=== PATIENT | female | born 1955 | race Caucasian/White ===

== ENCOUNTER → 2017-06-24 | Day surgery (SDC) | payer MEDICARE, OTHER ==
[~2017-06-24] MED LIST: ALPR-138 PO; DIPH2%T PO; ESTR2TAB PO; GLUCTAB PO; HYDR50TA5 PO; LOTE10TA PO; MIDAZOLAM HCL 2 MG/2 ML VIAL ONE; MORPHINE SULFATE 4 MG/ML INJ ONE; OXYC1TAB13 PO; PROPOFOL 200 MG/20 ML AMP IV ONE; ROSU5 PO; SODIUM CHLOR 0.9% 1000 ML BAG IV ONE; TRAZ50TA78 PO; oxyCODONE/ACETAMINOPHEN 5 MG/325 MG TAB ONE
--- NOTE | 2017-06-26 21:10 | MP ---
cc: SVETLANA HAMPTON DATE OF SURGERY 06/24/2017 PREOPERATIVE DIAGNOSIS Left total knee arthrofibrosis. POSTOPERATIVE DIAGNOSIS Left total knee arthrofibrosis. PROCEDURE Left knee manipulation under anesthesia. ANESTHESIA General with LMA ANESTHESIOLOGIST Dr. Yane Campbell SURGEON Dr. Eliu Hampton ESTIMATED BLOOD LOSS None COMPLICATIONS None known. INDICATION Caprice Dobbs is a 61-year-old female who underwent total knee arthroplasty and subsequently developed stiffness of the knee. She is failing conservative management and indicated for manipulation under anesthesia. Risks, benefits thoroughly discussed and detail informed consent was obtained. PROCEDURE IN DETAIL The patient brought to the operating room. She was placed under general anesthetic with an LMA, Once she is completely under and the time-out had already been completed while she was awake, we flexed the hip to 90 degrees and let it show it where the gravity flexion was and gravity flexed to 90 degrees. Then we placed gentle flexion on the knee and the knee flexed to 135 degrees with a very slight crepitation being noted. No unusual crepitation or instability. Following the manipulation, we manipulated in slight extension to allow for 5 degrees of hyperextension and repeated this process multiple times. At the end, gravity flexion was 120 degrees. No varus-valgus instability. The patient was awaken and returned recovery room in stable condition. MD CHILO De La Cruz/ /7:58 AM /9:03 PM
== END | disposition home or self-care (01) ==
LOC: ESDC 06:46
PROVIDERS: ATTEND Orthopaedic Surgery Sports Medicine
DX: M24.662 Ankylosis, left knee (principal)
CPT/HCPCS: 01380; 27570; J2250; J2270; J3010; J7030

== ENCOUNTER → 2017-07-21 | Day surgery (SDC) | payer MEDICARE ==
[~2017-07-21] MED LIST changes: +LACTATED RINGER'S 1000 ML INJ 1,000 ML ONE; -MIDAZOLAM HCL 2 MG/2 ML VIAL ONE; -MORPHINE SULFATE 4 MG/ML INJ ONE; -SODIUM CHLOR 0.9% 1000 ML BAG IV ONE; -oxyCODONE/ACETAMINOPHEN 5 MG/325 MG TAB ONE
--- NOTE | 2017-07-21 14:39 | GIPROC ---
[facility] [address] [facility] [place], [address] COLONOSCOPY PROCEDURE REPORT EXAM DATE: 07/21/2017 PATIENT NAME: Caprice Dobbs MR #: [id number] BIRTHDATE: 1955 ENDOSCOPIST: Mariella Ruvalcaba MD ORDER #: [id number] AIRPORT TOWER CONTROLLER: Hannah Hinds STATUS: outpatient INDICATIONS: The patient is a 61 yr old female here for a colonoscopy due to high risk patient with personal history of colonic polyps PROCEDURE PERFORMED: Colonoscopy with polypectomy MEDICATIONS: None and Per Anesthesia. PREP QUALITY: good PREP TYPE:Other: ESTIMATED BLOOD LOSS: None CONSENT: The patient understands the risks and benefits of the procedure and understands that these risks include, but are not limited to: sedation, allergic reaction, infection, perforation and/or bleeding. Alternative means of evaluation and treatment include, among others: physical exam, x-rays, and/or surgical intervention. The patient elects to proceed with this endoscopic procedure. medical equipment was checked for proper function. Hand hygiene and appropriate measures for infection prevention was taken. After the risks, benefits and alternatives of the procedure were thoroughly explained, Informed consent was verified, confirmed and timeout was successfully executed by the treatment team. A digital exam was performed and revealed external hemorrhoids The [id number] ([id number]) endoscope was introduced through the anus and advanced to the cecum, which was identified by both the appendix and ileocecal valve. The instrument was then slowly withdrawn as the colon was fully examined. COLON FINDINGS: Diverticulosis sigmoid,descending polyp sessile cecum-7 mm-cold snare polypectomy with complete removal polyp sessile ascending colon-7 mm-cold snare polypectomy. Retroflexed views revealed internal hemorrhoids and Retroflexed views revealed small internal hemorrhoids The scope was then completely withdrawn from the patient and the procedure terminated. PROCEDURE WITHDRAWAL TIME:6minutes ADVERSE EVENTS: There were no complications. IMPRESSIONS: 1. Diverticulosis sigmoid,descending polyp sessile cecum-7 mm-cold snare polypectomy with complete removal polyp sessile ascending colon-7 mm-cold snare polypectomy 2. Retroflexed views revealed internal hemorrhoids 3. Retroflexed views revealed small internal hemorrhoids 4. Was performed 5. Revealed external hemorrhoids RECOMMENDATIONS: 1. Await biopsy results. Biopsy results will not be ready for 7-10 days. If you don't hear from us in two weeks, call our office for results. 2. Benefiber 2 tsp daily 3. Probiotics from any C or health food store 4. Yearly rectal exams RECALL: Return 5 years Colonoscopy Mariella Ruvalcaba MD eSigned: Mariella Ruvalcaba MD 07/21/2017 2:39 PM cc: Danish Negron, [facility] Adele and Kamaljit Abdul M.D. PATIENT NAME: Caprice Dobbs MR#: [id number]
== END | disposition home or self-care (01) ==
LOC: ESDC 10:31
PROVIDERS: ATTEND Internal Medicine Gastroenterology
DX: Z12.11 Encounter for screening for malignant neoplasm of colon (principal); Z86.010 Personal history of colon polyps; K57.90 Diverticulosis of intestine, part unspecified, without perforation or abscess without bleeding; D12.2 Benign neoplasm of ascending colon; D12.0 Benign neoplasm of cecum; K64.4 Residual hemorrhoidal skin tags; K64.8 Other hemorrhoids
CPT/HCPCS: 00810; 45385; 88305; J3010; J7120